=== PATIENT | female | born 1985 | race Caucasian/White ===

== ENCOUNTER 2018-06-21 07:05 | Emergency (ER) | payer BC, SELFPAY ==
[2018-06-21 07:10] VITALS: BP 124/85; PULSE 84; RESP 18; TEMP 36.7; O2SAT 97
--- NOTE | 2018-06-21 08:16 | ED.GENADUL_ITS ---
Discharge Plan Disposition Patient Disposition: HOME Condition: Good Discharge Details Chief Complaint: RespSymp Clinical Impression: Bronchitis, Sinusitis, Smoking Primary Care Provider: Verena Garcia ED Provider: Jonathan Xiao Home Meds and New Rx's Prescriptions: New azithromycin 250 mg tablet See Label Instructions .ROUTE .COMPLEX Qty: 6 RF: 0 albuterol sulfate 90 mcg/actuation HFA aerosol inhaler 2 puff IH Q6H PRN (Reason: shortness of breath or wheezing) Qty: 6.7 RF: 0 benzonatate 100 mg capsule 100 mg PO TID PRN (Reason: cough) Qty: 30 RF: 0 No Action adalimumab [Humira] 20 mg/0.2 mL Syringe Kit subcut .Q2WKS RF: 0 levonorgestrel [Mirena] 20 mcg/24 hr (5 years) Intrauterine Device 1 unit Intrauterine DAILY RF: 0 Discharge Instructions Instructions: Sinusitis (ED), Acute Bronchitis (ED) Additional Instructions: Please continue taking your home Mucinex, please stop smoking, please take the inhaler as directed. Please take the antibiotic as indicated. If you notice any worsening of your symptoms, or any new symptoms such as vomiting, diarrhea, fever, chills, shortness of breath, chest pain, numbness, weakness, or fainting , please return immediately to the emergency department for reevaluation. Please follow up with your primary care provider as soon as possible for reassessment and reevaluation. As always, it was a pleasure participating in your medical care today. Stand Alone Forms: Work Release Medical Decision Making This is a pleasant 32-year-old female who does smoke who presents for signs and symptoms consistent with an upper respiratory infection and bronchitis. She has had 2 weeks of cough nasal congestion. She has no fever here, vital signs are stable and reassuring. No evidence of tachycardia tachypnea hypoxemia. Lung sounds are relatively benign. She shows no signs or symptoms concerning for pulmonary embolism. No evidence of severe pneumonia. With her smoking, I do feel that she is suffering from a component of acute on chronic bronchitis, with acute on chronic sinusitis. As her symptoms have been over 2 weeks, I feel that antibiotic therapy is indicated at this point with her lack of improvement. We will give the patient azithromycin, as well as an inhaler for increased sputum production, continued Mucinex, recommendations for [place] pot, prompt return for worsening of her symptoms. We discussed red flags for which to return. I have extensively reviewed the treatment plan and discharge instructions with the patient. I have addressed all patient concerns at this time. The patient was made aware of what symptoms to monitor for that would warrant a return to the emergency department. Discussed the plan with the patient, they demonstrate verbal understanding and agreement with our assessment and plan at this time. HPI General Date/Time Provider Initiated Documentation: 06/21/18 07:51 . HPI Narrative: This is a 32-year-old female with no significant past medical history except for tobacco abuse and psoriasis who presents today for evaluation of cough. She states that 2 weeks ago she developed of cough with facial congestion. She did take [id number] Mucinex had slight improvement of her symptoms however over the past week the symptoms have no longer improved and have actually worsened. She has subjective chills but denies any fever. She did have previous green and yellow productive sputum, however that has decreased at this point. Over the last few days as her cough is worse and she has noted some chest pain only with cough, but denies any pleuritic chest pain or shortness of breath. She does complain of generalized fatigue, and achiness, she denies any headache, vision changes, numbness, tingling, neck pain, shoulder pain, or arm pain. She denies any associated symptoms of calf tenderness, or leg swelling. Denies PE risk factors such as recent long car rides, immobilization, recent surgery, prior history of DVT or PE, family history of PE or DVT, morbid obesity, hemoptysis, history of cancer. SHe does have a Mirena device though. Patient does admit to sick contacts at home which include her children. She has no other complaints at this time. Related Data Home Medications Medication Instructions Recorded Confirmed adalimumab [Humira] SUBCUT .Q2WKS 06/21/18 albuterol sulfate 2 puff IH Q6H PRN #6.7 gm 06/21/18 azithromycin See Label Instructions .ROUTE 06/21/18 .COMPLEX #6 tab benzonatate 100 mg PO TID PRN #30 cap 06/21/18 levonorgestrel [Mirena] 1 unit INTRAUTERINE DAILY 06/21/18 Previous Rx's Medication Instructions Recorded albuterol sulfate 2 puff IH Q6H PRN #6.7 gm 06/21/18 azithromycin See Label Instructions .ROUTE 06/21/18 .COMPLEX #6 tab benzonatate 100 mg PO TID PRN #30 cap 06/21/18 Allergies Allergy/AdvReac Type Severity Reaction Status Date / Time No Known Allergies Allergy Unverified 06/21/18 07:17 General Stated Complaint: RespSymp KIM: 4 Review of Systems Review of Systems All systems reviewed & are unremarkable except as noted in HPI and below PFSH Social History Smoking/Tobacco Use Status: Current every day Surgical History Cervical Procedure Exam Narrative Exam Narrative: 1.Const: Well-nourished, Well-developed, appearing stated age 2.Eyes: PERRL, no conjunctival injection, and symmetrical lids. 3.ENT: Atraumatic external nose and ears. Moist MM. Neck: Symmetric, trachea midline, No thyromegaly. Mild congestion tenderness noted over the frontal and maxillary sinuses. No significant oropharyngeal erythema or edema. No significant tonsillar exudates or tenderness on palpation of the neck. No significant cervical lymphadenopathy. 4.CVS: +S1/S2, No murmurs or gallops. Peripheral pulses 2+ and equal in all extremities. Brisk capillary refill in all extremities. 5.RESP: Unlabored respiratory effort. Clear to auscultation bilaterally. No wheezes rales or rhonchi. 6.GI: Soft, Nontender/Nondistended, No hepatosplenomegaly. No guarding or rebound. 7.MSK: Normocephalic/Atraumatic, Extremities w/o deformity or ttp No cyanosis or clubbing, Normal movement of all extremities. No calf tenderness. No unilateral leg swelling. 8.Skin: Warm, Dry. No rashes or lesions. 9.Neuro: cardiovascular lab director II-XII grossly intact. Sensation grossly intact, no focal neurologic deficits. 10.Psych: (AAO) x3. Appropriate mood and affect Course Vital Signs Temperature 36.7 C 06/21/18 07:10 Pulse 84 06/21/18 07:10 Respiratory Rate 18 06/21/18 07:10 Blood Pressure 124/85 06/21/18 07:10 Pulse Oximetry 97 06/21/18 07:10 Temperature 36.7 C 06/21/18 07:10 Temperature Source Skin 06/21/18 07:10 Pulse 84 06/21/18 07:10 Respiratory Rate 18 06/21/18 07:10 Respiratory Effort 06/21/18 07:13 Respiratory Depth Normal 06/21/18 07:13 Blood Pressure 124/85 06/21/18 07:10 Blood Pressure Position Sitting 06/21/18 07:10 Pulse Oximetry 97 06/21/18 07:10 Oxygen Delivery Method Room Air 06/21/18 07:10 Oxygen Flow Rate 0 06/21/18 07:10 Pain Level 6 06/21/18 07:10
== END 2018-06-21 08:10 | disposition home or self-care (01) ==
LOC: ER 08:21
PROVIDERS: Emergency Provider Student in an Organized Health Care Education/Training Program
DX: J20.9 Acute bronchitis, unspecified (principal); J01.90 Acute sinusitis, unspecified; F17.210 Nicotine dependence, cigarettes, uncomplicated
CPT/HCPCS: 99283

== ENCOUNTER 2019-01-19 15:19 | Outpatient (REF) | payer BC, SELFPAY ==
--- NOTE | 2019-01-19 13:30 | PAPFT_PTH ---
PATIENT: RADHA ENG LOC: [facility] U#:[id number] AGE/SX: 33/F ROOM: RE01/19/[address]: RESHMA Astorga : 1985 BED: DIS: 01/19/2019 SPEC #: [id number] RECD: 01/19/19 16:47 STATUS: NHAN REQ #: [id number] HILLARY: 01/19/19 13:[address]: Caitlin Velásquez DEPT: [facility] Cytology RECD BY: Lamar Hicks ENTERED: 01/19/19 16:48 SP TYPE: PAPFT ADRIANA DR: None Tissues: 1 - CX/ENDOCX FOR PAP SMEARS Procedures: PAP THIN PREP/[facility] Screening HPV DNA PROBE Comments: [id number]
[2019-01-22 14:28] LABS: Chlamydia Result Negative; GC Result Negative; Specimen Description CERVICAL
== END 2019-01-19 15:39 ==
LOC: LBN 15:19
PROVIDERS: Visit Provider Nurse Practitioner Family
DX: Z11.3 Encounter for screening for infections with a predominantly sexual mode of transmission (principal); Z12.4 Encounter for screening for malignant neoplasm of cervix; Z11.51 Encounter for screening for human papillomavirus (HPV)
CPT/HCPCS: 87491; 87591; 88142; 87624